=== PATIENT | male | born 1955 | race African-American/Black ===

== ENCOUNTER 2021-08-18 11:28 | Emergency (ER) | payer MEDICARE, BC ==
[~2021-08-18] VITALS: Ht 182.9 cm; Wt 80.0 kg
[2021-08-18] MEDS ORDERED: ONDANSETRON HCL 4MG/2ML INJ IV STA ×3 (11:34→20:28)
[2021-08-18] MEDS ORDERED: MORPHINE SULFATE 4 MG/ML CPJ (NOT FOR IM USE) IV STA ×3 (11:34→20:28)
[2021-08-18 12:14] LABS: BASOPHILS % 0.3 % (0.0-2.0); HEMATOCRIT. 46.4 % (42.0-52.0); MEAN CORPUSCULAR HEMOGLOBIN 34.5 pg (28.0-32.0); MEAN CORPUSCULAR VOLUME 100.3 fL (80.0-94.0); MONOCYTES % 6.4 % (2.0-8.0); NEUTROPHILS % 83.3 % (40.0-76.0); PLATELET 211 x1000/uL (130-400); RED BLOOD CELL COUNT 4.62 mill/uL (4.7-6.1)
[2021-08-18 12:20] LABS: CHLORIDE 92 mEq/L (98-107)
[2021-08-18 12:28] LABS: INR 1.1; PROTHROMBIN TIME 12.2 sec (9.6-11.0)
[2021-08-18] MEDS ORDERED: POTASSIUM CHLORIDE INJ 40 MEQ in DEXT 5% WATER 250 ML IV ONE (13:15)
[2021-08-18] MEDS ORDERED: IOHEXOL-350 100 ML BOTTLE ONE (14:24)
[2021-08-18] MEDS ORDERED: LABETALOL HCL VIAL 20 MG/4 ML VIAL IV ONE (15:00)
[2021-08-18] MEDS ORDERED: LABETALOL 5MG/ML SYR 20 MG/4 ML SYRINGE IV NR (15:30)
[2021-08-18 15:42] LABS: CLARITY URINE CLEAR (CLEAR); COLOR URINE YELLOW (YELLOW); KETONES URINE TRACE (NEGATIVE); LEUKOCYTE ESTERASE URINE NEGATIVE (NEGATIVE); NITRITE URINE NEGATIVE (NEGATIVE); OCCULT BLOOD URINE TRACE (NEGATIVE); PROTEIN URINE 1+ (NEGATIVE); SPECIFIC GRAVITY URINE 1.064 (1.005-1.030)
[2021-08-18 22:23] VITALS: BP 138/91
== END 2021-08-18 23:09 ==
LOC: ER 11:28
DX: K85.90 Acute pancreatitis without necrosis or infection, unspecified (principal); I71.4 Abdominal aortic aneurysm, without rupture; I71.2 Thoracic aortic aneurysm, without rupture; I10 Essential (primary) hypertension; Z96.659 Presence of unspecified artificial knee joint; Z98.890 Other specified postprocedural states; Z20.822 Contact with and (suspected) exposure to COVID-19
CPT/HCPCS: 36415; 71275; 74174; 80053; 81003; 83690; 85025; 85610; 87426; 93005; 96365; 96375; 96376; 99291; J2270; J2405; J3480; J3490; J7060; Q9967